=== PATIENT | male | born 2000 | race African-American/Black ===

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

== ENCOUNTER 2018-02-22 09:24 | Day surgery (SDC) | payer OTHER ==
[2018-02-22 11:26] LABS: Absolute Lymphocytes (CBC) 1.8 K/uL (0.7-4.9); Absolute Neutrophil 6.6 K/uL (1.8-8.0); Eosinophils % 1.7 % (0-4.4); Hematocrit 40.8 % (39.6-49.0); Lymphocytes % 18.5 % (15.3-44.8); Monocytes % 10.3 % (3.3-12.3); RBC Red Blood Cell Count 4.65 M/uL (4.33-5.43)
[2018-02-22] MEDS ORDERED: CEFAZOLIN 1GM (PREMIX IV) 1 GM/50 ML BAG ONE (11:29)
[2018-02-22] MEDS ORDERED: Ringers Lactate 1,000 ML IV ONE (11:29)
[2018-02-22] MEDS ORDERED: FENTANYL CITR 100 MCG/2 ML ONE (12:29)
[2018-02-22] MEDS ORDERED: FENTANYL CITR 250 MCG/5 ML ONE (12:34)
[2018-02-22] MEDS ORDERED: LIDOCAINE 2% MPF 5 ML VIAL ONE (12:34)
[2018-02-22] MEDS ORDERED: MIDAZOLAM HCL 2 MG/2 ML INJ ONE (12:34)
[2018-02-22] MEDS ORDERED: PROPOFOL 200 MG/20 ML VIAL IV ONE (12:34)
[2018-02-22] MEDS ORDERED: METHYLENE BLUE 0.5% 10 ML AMP ONE (12:34)
[2018-02-22] MEDS ORDERED: ROCURONIUM 50 MG/5 ML VIAL IV ONE (12:35)
[2018-02-22] MEDS ORDERED: KETOROLAC 30 MG/ML INJ ONE (13:33)
[2018-02-22] MEDS ORDERED: GLYCOPYRROLATE 0.2 MG/ML SYR ONE (13:33)
[2018-02-22] MEDS ORDERED: NEOSTIGMINE 1 MG/ML -5 ML SYRINGE ONE (13:34)
--- NOTE | 2018-02-23 04:05 | OP ---
Date of Procedure: 02/22/2018 Surgeon: Michael Barrera MD Preoperative Diagnosis: Pilonidal abscess. Postoperative Diagnosis: Pilonidal abscess. Procedure: Wide excision of pilonidal abscess, which was complex in nature, down through the subcuta neous tissues and to the presacral fascia, 12 x 8 cm. Estimated Blood Loss: Minimal. Specimen: Pus and pilonidal cyst. Findings: As above. Anesthesia: General. Complications: None. Disposition: The patient tolerated the procedure in stable condition, taken to recovery in good gene ral condition. Description Of Procedure: The patient was brought to the OR, placed in prone position. General anes thesia was begun. The patient was placed in the prone position, prepped and draped in usual sterile fashion. Marcaine 0.5% was infiltrated locally. A 15-blade was used to make 12 x 8 [address] incision all the way around this large pilonidal abscess. Subcutaneous tissue was divided. Pus was encountered. Cultures were done. All of the abscess wall was excised and this dissection took place all the way down to the presacral fascia. Wound was irrigated. Bleeding was controlled with cautery and then we t-to-dry normal saline dressing change was applied. The patient was awakened and taken to recovery i n good general condition. Discharge Note: The patient will go to day surgery and home when stable. Disposition: Home. Condition: Stable. Discharge Instructions: Resume home medications and diet. Activity as tolerated. No heavy lifting. Remove outer dressing in the a.m. Wet-to-dry normal saline dressing changes daily. The family meaghan l be taught how. Tylenol No. 3, 1 tablet p.o. q.4 p.r.n. pain. Keflex 500 mg p.o. q.6. Follow up i n my office in a week. Call for appointment. ROXANN/KAYLIN Voice ID: [id number] Report ID: [id number]
== END 2018-02-22 15:30 | disposition home or self-care (01) ==
LOC: OR 09:24
PROVIDERS: ATTEND Surgery
PROC: 0JB90ZZ Excision of Buttock Subcutaneous Tissue and Fascia, Open Approach (ICD-10-PCS; principal; 2018-02-22 12:00)
DX: L05.01 Pilonidal cyst with abscess (principal); E66.9 Obesity, unspecified; Z72.0 Tobacco use
CPT/HCPCS: 36415; 85025; 87070; 87075; 87077; 87186; 87205; 88304; J0690; J2250; J2704; J2710; J3010